=== PATIENT | male | born 1935 | race Asian ===

== ENCOUNTER 2019-07-02 15:49 | Emergency (ER) | payer MEDICARE, OTHER ==
[~2019-07-02] VITALS: Ht 170.2 cm; Wt 63.5 kg
[~2019-07-02 15:49] MED LIST: UNOBMED
[2019-07-02 15:58] VITALS: BP 144/63
--- NOTE | 2019-07-02 16:02 | NUR ---
ED Nurse Note: pt [place] by RA [place] mall due to tripped and fell injury. pt tried to get on escalator and tripped. multiple hematoma noted. skin tear noted on left cheek and left upper elbow. denies any pain. AAO x3. per family member, pt is forgetful. ambulatory with cane. respirations even and non-labored noted. 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 will wait for the further order.
[2019-07-02] MEDS ORDERED: Tetanus/Diptheria/Pertussis IM ONE (16:15)
--- NOTE | 2019-07-02 16:23 | Emergency Room Report ---
History of Present Illness General Chief Complaint: Multiple Trauma/Fall Source: Patient Present Illness HPI 84-year-old male history of hypertension, hyperlipidemia, dementia presents with mechanical fall, patient was climbing the escalator looking for his , he tripped and fell hit his head, no LOC, patient is not on any anticoagulants, only takes baby aspirin. Patient denies any complaints. He is limited secondary to patient's dementia, provides collateral history. Patient feels completely fine Allergies: Coded Allergies: No Known Allergies (Verified , 01/30/08) Patient History Past Medical History: see triage record Reviewed Nursing Documentation: PMH: Agreed; PSxH: Agreed Nursing Documentation-PMH Past Medical History: No History, Except For Hx Cardiac Problems: Yes - HYPOTENSION Hx Diabetes: Yes Review of Systems Constitutional: Denies: chills, fever Eye: Denies: blurred vision, double vision ENT: Denies: throat pain, nasal discharge Respiratory: Denies: cough, shortness of breath Cardiovascular: Denies: chest pain, palpitations Gastrointestinal: Denies: abdominal pain, diarrhea, nausea, vomiting Genitourinary: Denies: dysuria, pain Musculoskeletal: Denies: back pain, muscle pain Skin: Denies: rash, lesions Neurological: Denies: headache, focal weakness Hematologic/Lymphatic: Denies: easy bleeding, easy bruising All Other Systems: negative except mentioned in HPI Physical Exam Vital Signs Date Time Temp Pulse Resp B/P (MAP) Pulse Ox O2 Delivery O2 Flow Rate FiO2 07/02/19 15:43 97.7 84 16 126/83 (97) 99 Room Air Sp02 EP Interpretation: reviewed, normal General Appearance: well appearing, no apparent distress, alert Head: normocephalic, other - Abrasions on the face Eyes: bilateral eye PERRL, bilateral eye EOMI ENT: uvula midline, moist mucus membranes Neck: supple, thyroid normal, no bony tend - No c spine tenderness , supple/ symm/no masses Respiratory: lungs clear, no respiratory distress, no retraction, no accessory muscle use Cardiovascular #1: normal peripheral pulses, regular rate, rhythm, no edema, no gallop, no murmur Gastrointestinal: non tender, soft, no guarding, no rebound Musculoskeletal: normal inspection Neurologic: alert, oriented x3 Psychiatric: mood/affect normal Skin: no rash, warm/dry, other - skin tears noted on the face superficially Medical Decision Making Diagnostic Impression: Primary Impression: Multiple injuries due to trauma Additional Impressions: Fall Qualified Codes: W19.XXXA - Unspecified fall, initial encounter Abrasion head Closed head injury Qualified Codes: S09.90XA - Unspecified injury of head, initial encounter Intracranial hemorrhage ER Course 84-year-old male presents with mechanical fall, patient feels completely fine. Lesions on the face, and skin tears were glued together, disposition home with return precautions, negative imaging Patient found to have hemorrhages in the bilateral ventricles, on MRI, will transfer to [facility], [facility] called at 6:[address] Gillette [facility] at 6:48pm will accept patient Patient transferred to [facility] for obs for his brain bleed Laboratory Tests Test 07/02/19 16:00 White Blood Count 4.8 K/UL (4.8-10.8) Red Blood Count 2.70 M/UL (4.70-6.10) L Hemoglobin 9.9 G/DL (14.2-18.0) L Hematocrit 28.7 % (42.0-52.0) L Mean Corpuscular Volume 107 FL (80-99) H Mean Corpuscular Hemoglobin 36.9 PG (27.0-31.0) H Mean Corpuscular Hemoglobin Concent 34.6 G/DL (32.0-36.0) Red Cell Distribution Width 11.7 % (11.6-14.8) Platelet Count 117 K/UL (150-450) L Mean Platelet Volume 6.5 FL (6.5-10.1) Neutrophils (%) (Auto) 65.0 % (45.0-75.0) Lymphocytes (%) (Auto) 23.0 % (20.0-45.0) Monocytes (%) (Auto) 8.7 % (1.0-10.0) Eosinophils (%) (Auto) 2.8 % (0.0-3.0) Basophils (%) (Auto) 0.5 % (0.0-2.0) Prothrombin Time 10.6 SEC (9.30-11.50) Prothrombin Time INR 1.0 (0.9-1.1) PTT 26 SEC (23-33) Sodium Level 141 MMOL/L (136-145) Potassium Level 4.4 MMOL/L (3.5-5.1) Chloride Level 106 MMOL/L (98-107) Carbon Dioxide Level 27 MMOL/L (21-32) Anion Gap 8 mmol/L (5-15) Blood Urea Nitrogen 24 mg/dL (7-18) H Creatinine 1.6 MG/DL (0.55-1.30) H Estimate Glomerular Filtration Rate mL/min (>60) Glucose Level 161 MG/DL (74-106) H Calcium Level 9.2 MG/DL (8.5-10.1) Total Bilirubin 0.5 MG/DL (0.2-1.0) Aspartate Amino Transferase (AST) 18 U/L (15-37) Alanine Aminotransferase (ALT) 16 U/L (12-78) Alkaline Phosphatase 53 U/L (46-116) Total Protein 7.0 G/DL (6.4-8.2) Albumin 3.7 G/DL (3.4-5.0) Globulin 3.3 g/dL Albumin/Globulin Ratio 1.1 (1.0-2.7) EKG Diagnostic Results EKG Time: 15:50 EP Interpretation: NSR, right bundle branch block, rate 80, QTc 470 , no acute ST elevations Rate: normal Rhythm: NSR ST Segments: no acute changes CT/MRI/US Diagnostic Results CT/MRI/US Diagnostic Results : Impression CT Brain : Impression: 3 x 5 x 2 mm high attenuation focus in the roof of the right lateral ventricle. This may represent a small dystrophic calcification or a small focus of hemorrhage. If clinically indicated, MRI may be useful to clarify No other evidence of acute intracranial bleed. No mass effect Fairly extensive chronic age-related changes, as described Multiple scalp contusions bilaterally Minimal sinus disease Findings phoned to Dr. Carlisle at the time of interpretation The CT scanner at [facility] is accredited by the [employer] and the scans are performed using protocols designed to limit radiation exposure to as low as reasonably achievable to attain images of sufficient resolution adequate for diagnostic evaluation. CT Face: Neg MRI Brain : EXAM: MR Head Without Intravenous Contrast CLINICAL HISTORY: CALC TECHNIQUE: Magnetic resonance images of the head/brain without intravenous contrast in multiple planes. COMPARISON: CT 07/02/2019 FINDINGS: Brain: No acute infarct or significant mass effect. Nonspecific areas of T2 signal hyperintensity in the periventricular white matter likely represent the sequela of chronic small vessel ischemic disease. Ventricles: Small foci of susceptibility artifact along the right interhemispheric falx and layering in the posterior horns of bilateral lateral ventricles are concerning for trace intraventricular hemorrhage. Ventricular and sulcal prominence commensurate with the patient's age. Bones/joints: Unremarkable. Soft tissues: Right posterior scalp hematoma. Sinuses: Unremarkable as visualized. No acute sinusitis. Mastoid air cells: Unremarkable as visualized. No mastoid effusion. Orbits: Unremarkable as visualized. IMPRESSION: Trace acute hemorrhage in bilateral lateral ventricles. No significant mass effect. Radiologist: Jennifer Haynes MD Electronically Signed: 07/02/19 18:31 Study ready at 18:17 and initial results transmitted at 18:31 Critical Value Communications Clear Time Type Notes Verify Receipt Last Vital Signs Date Time Temp Pulse Resp B/P (MAP) Pulse Ox O2 Delivery O2 Flow Rate FiO2 07/02/19 15:58 80 15 Room Air 07/02/19 15:58 144/63 100 07/02/19 15:43 97.7 Disposition: XFER T-[facility] - [facility] Condition: Stable Julio Carlisle MD Jul 02, 2019 16:23
--- NOTE | 2019-07-02 17:00 | Diagnostic Imaging Report ---
Indications: Pain, status post trip and fall injury Technique: Spiral images obtained through the facial bones. No IV contrast utilized. Multiplanar reconstructions were generated.Total dose length product 2021.59 mGycm. CTDIvol(s) 70.38,28.19 mGy. Dose reduction achieved using automated exposure control Comparison: none Findings: No acute fractures. No worrisome sinus opacification. The nasal septum is midline. There is minimal right maxillary and right ethmoid sinus mucosal thickening. There is evidence of prior bilateral optic globe surgery. The optic globes are otherwise intact. The included intracranial structures demonstrate a right temporal tip arachnoid cyst. The mastoids are clear. The dentition is intact except for evidence of a few prior dental extractions. There are minimal degenerative changes of the cervical spine noted. The facial soft tissues are unremarkable. Impression: Findings as noted. No evidence of acute bony trauma The CT scanner at [facility] is accredited by the [employer] and the scans are performed using protocols designed to limit radiation exposure to as low as reasonably achievable to attain images of sufficient resolution adequate for diagnostic evaluation.
--- NOTE | 2019-07-02 17:08 | Diagnostic Imaging Report ---
Indications: Trip and fall injury Technique: Spiral acquisitions obtained through the brain. Angled axial and coronal 5 x 5 mm slices were reconstructed. Total dose length product 2021.59 mGycm. CTDI vol(s) 70.38,28.19 mGy. Dose reduction achieved using automated exposure control Comparison: None. Findings: There is a high right parietal scalp hematoma. There are too small left parietal scalp hematoma is demonstrated. There is a tiny focus of increased attenuation in the medial subependymal roof of the right lateral ventricle. This measures approximately 3 x 5 x 2 mm. No other evidence of acute intracranial hemorrhage. No mass effect nor midline shift. There is age-related enlargement of the ventricles and extra-axial CSF spaces. There is periventricular deep white matter low attenuation consistent with chronic microvascular ischemic change. Air is a right temporal tip arachnoid cyst incidentally noted. 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 There is evidence of prior bilateral cataract surgery. There is minimal right maxillary and ethmoid mucosal disease incidentally noted. The mastoids are clear. The calvarium is intact. Impression: 3 x 5 x 2 mm high attenuation focus in the roof of the right lateral ventricle. This may represent a small dystrophic calcification or a small focus of hemorrhage. If clinically indicated, MRI may be useful to clarify No other evidence of acute intracranial bleed. No mass effect Fairly extensive chronic age-related changes, as described Multiple scalp contusions bilaterally Minimal sinus disease Findings phoned to Dr. Carlisle at the time of interpretation The CT scanner at [facility] is accredited by the [employer] and the scans are performed using protocols designed to limit radiation exposure to as low as reasonably achievable to attain images of sufficient resolution adequate for diagnostic evaluation.
[2019-07-02 17:30] VITALS: BP 142/70
--- NOTE | 2019-07-02 18:32 | Diagnostic Imaging Report ---
EXAM: MR Head Without Intravenous Contrast CLINICAL HISTORY: CALC TECHNIQUE: Magnetic resonance images of the head/brain without intravenous contrast in multiple planes. COMPARISON: CT 07/02/2019 FINDINGS: Brain: No acute infarct or significant mass effect. Nonspecific areas of T2 signal hyperintensity in the periventricular white matter likely represent the sequela of chronic small vessel ischemic disease. Ventricles: Small foci of susceptibility artifact along the right interhemispheric falx and layering in the posterior horns of bilateral lateral ventricles are concerning for trace intraventricular hemorrhage. Ventricular and sulcal prominence commensurate with the patient's age. Bones/joints: Unremarkable. Soft tissues: Right posterior scalp hematoma. Sinuses: Unremarkable as visualized. No acute sinusitis. Mastoid air cells: Unremarkable as visualized. No mastoid effusion. Orbits: Unremarkable as visualized. IMPRESSION: Trace acute hemorrhage in bilateral lateral ventricles. No significant mass effect. <MYCVCSECTION> Critical Value Communications 07/02/19 18:42 Verify Receipt Verified receipt with Dr. Carlisle on 07/02 18:42 (-07:00)
[2019-07-02 18:58] LABS: BASOPHILS % (AUTO) 0.5 % (0.0-2.0); EOSINOPHILS % (AUTO) 2.8 % (0.0-3.0); HEMATOCRIT 28.7 % (42.0-52.0); HEMOGLOBIN 9.9 G/DL (14.2-18.0); MEAN CORPUSCULAR VOLUME 107 FL (80-99); MONOCYTES % (AUTO) 8.7 % (1.0-10.0); PLATELET COUNT 117 K/UL (150-450); RED CELL DISTRIBUTION WIDTH 11.7 % (11.6-14.8); WHITE BLOOD COUNT 4.8 K/UL (4.8-10.8)
[2019-07-02 19:04] LABS: ANION GAP 8 mmol/L (5-15); BLOOD UREA NITROGEN 24 mg/dL (7-18); CALCIUM 9.2 MG/DL (8.5-10.1); CARBON DIOXIDE 27 MMOL/L (21-32); CHLORIDE 106 MMOL/L (98-107); CREATININE 1.6 MG/DL (0.55-1.30); POTASSIUM 4.4 MMOL/L (3.5-5.1); SODIUM 141 MMOL/L (136-145)
--- NOTE | 2019-07-02 19:05 | NUR ---
HAND-OFF: Report given to Hemanth Sanchez RN.
[2019-07-02 19:09] LABS: ALANINE AMINOTRANSFERASE 16 U/L (12-78); ALBUMIN 3.7 G/DL (3.4-5.0); ALBUMIN/GLOBULIN RATIO 1.1 (1.0-2.7); ALKALINE PHOSPHATASE 53 U/L (46-116); ASPARTATE AMINO TRANSFERASE 18 U/L (15-37); BILIRUBIN,TOTAL 0.5 MG/DL (0.2-1.0)
--- NOTE | 2019-07-02 19:17 | NUR ---
ED Nurse Note:. Reports given to RA Edith at [facility] ICU.
--- NOTE | 2019-07-02 19:22 | NUR ---
ED Nurse Note: [place] [facility] [place] [facility].
[2019-07-02 19:23] VITALS: BP 154/76
== END 2019-07-02 19:26 | disposition home or self-care (01) ==
LOC: EDBD 15:49 → EMR 16:27
DX: S01.81XA Laceration without foreign body of other part of head, initial encounter (principal); S00.91XA Abrasion of unspecified part of head, initial encounter; S06.300A Unspecified focal traumatic brain injury without loss of consciousness, initial encounter; W10.0XXA Fall (on)(from) escalator, initial encounter; Y92.89 Other specified places as the place of occurrence of the external cause; Z23 Encounter for immunization; E11.9 Type 2 diabetes mellitus without complications; F03.90 Unspecified dementia, unspecified severity, without behavioral disturbance, psychotic disturbance, mood disturbance, and anxiety; Z79.82 Long term (current) use of aspirin
CPT/HCPCS: 36415; 70450; 70486; 70551; 80053; 85025; 85610; 85730; 86850; 86900; 86901; 90471; 90715; 93005; 99284